=== PATIENT | female | born 1970 | race Caucasian/White ===

== ENCOUNTER 2019-05-29 20:06 | Emergency (ER) | payer OTHER ==
[~2019-05-29] VITALS: Ht 167.6 cm; Wt 56.7 kg
[2019-05-29] MEDS ORDERED: SERTRALINE HCL50 MG PO (20:23)
[2019-05-29 21:00] LABS: ABSOLUTE LYMPHOCYTES 1.2 thou/uL (0.8-5.3); ABSOLUTE MONOCYTES 0.5 thou/uL (0.0-1.2); ABSOLUTE NEUTROPHILS 7.6 thou/uL (1.6-8.1); BASOPHILS 0.4 %; HEMATOCRIT 40.8 % (37.0-47.0); HEMOGLOBIN 13.8 gm/dL (12.0-15.0); MCH 29.8 pg (26.0-34.0); MCHC 33.9 g/dL (28.0-37.0); MCV 88.1 fL (80.0-100.0); MONOCYTES 5.3 %; MPV 9.1 fl. (7.2-11.1); NUCLEATED RBCS 0 /100WBC; PLATELET COUNT* 209 thou/uL (150-400); POLYS 81.3 %; RBC 4.63 mil/uL (4.20-5.00); RDW-CV 14.2 % (10.5-14.5); WBC 9.3 thou/uL (4.0-11.0)
[2019-05-29 21:08] LABS: ANION GAP 13 mmol/L (7-16); BUN 11 mg/dL (7-18); CALCIUM 9.1 mg/dL (8.5-10.1); CHLORIDE 102 mmol/L (98-107); CO2 22 mmol/L (21-32); CREATININE 0.7 mg/dL (0.6-1.3); GLUCOSE 112 mg/dL (70-99); POTASSIUM 3.3 mmol/L (3.5-5.1); SODIUM 137 mmol/L (136-145)
[2019-05-29 21:17] LABS: ALBUMIN 4.3 g/dL (3.4-5.0); ALKALINE PHOSPHATASE 62 U/L (46-116); LIPASE 101 U/L (73-393); SGOT 11 U/L (15-37); SGPT 19 U/L (30-65); TOTAL BILIRUBIN 0.4 mg/dL (<0.1-1.0); TOTAL PROTEIN 7.6 g/dL (6.4-8.2); TROPONIN-I LEVEL <0.06 ng/mL (<0.06)
[2019-05-29] MEDS ORDERED: ZOFRAN ODT4 MG SUBLING (22:41)
[2019-05-29 23:05] LABS: URINE BILIRUBIN NEGATIVE (Negative); URINE BLOOD TRACE (Negative); URINE CLARITY CLEAR; URINE COLOR YELLOW; URINE GLUCOSE-RANDOM NEGATIVE (Negative); URINE LEUKOCYTES-REFLEX NEGATIVE (Negative); URINE NITRITE-REFLEX NEGATIVE (Negative); URINE PROTEIN 1+ (Negative); URINE UROBILINOGEN 0.2 E.U./dl (0.2-1.0)
[2019-05-29 23:06] LABS: URINE KETONES 3+ (Negative)
[2019-05-29 23:12] VITALS: BP 101/45
--- NOTE | 2019-05-30 11:50 | EKG ---
[place] [address] ELECTROCARDIOGRAM REPORT Name: RAFIADIAMOND Room: [facility]#: [id number] Admission: 05/29/19 Attend Phys: Discharge: 05/29/19 Date of : 72 Report #: [id number] THIS REPORT FOR: //name// [facility] ED Test Date: 2019-05-29 Test Time: 21:07:35 Pat Name: SRIKANTH MORATAYA Department: Room: Gender: F Psychologist Personnel: CRISTIAN : 1970 Requested By: Nicolas Jones Order Number: [id number] MD: Srinivas New Measurements Intervals [place] Rate: 53 P: 25 MI: 134 QRS: 60 QRSD: 131 T: 53 QT: 480 QTc: 451 Interpretive Statements Sinus arrhythmia Nonspecific intraventricular conduction delay No previous ECG available for comparison Electronically Signed On 05-30-2019 11:50:36 CDT by Srinivas New [email or web address] <ELECTRONICALLY SIGNED> By: Srinivas New MD, [facility] 05/30/19 [id number] Srinivas New MD, FACC /EPI
== END 2019-05-29 23:14 | disposition home or self-care (01) ==
LOC: M.ERS 20:06
PROVIDERS: Family Medicine
DX: R11.2 Nausea with vomiting, unspecified (principal); R19.7 Diarrhea, unspecified; R42 Dizziness and giddiness; Z88.0 Allergy status to penicillin